=== PATIENT | female | born 1955 | race Caucasian/White ===

== ENCOUNTER 2019-07-10 09:16 | Outpatient (CLI) | payer OTHER | END 2019-07-10 11:16 | disposition home or self-care (01) | LOC: ECT 09:16 | DX: F33.2 Major depressive disorder, recurrent severe without psychotic features (principal); F43.10 Post-traumatic stress disorder, unspecified; F41.1 Generalized anxiety disorder; Z98.1 Arthrodesis status; Z90.710 Acquired absence of both cervix and uterus; Z79.899 Other long term (current) drug therapy; Z81.8 Family history of other mental and behavioral disorders ==

== ENCOUNTER 2019-07-18 05:40 | Outpatient (RCR) | payer OTHER ==
[~2019-07-18] VITALS: Ht 157.5 cm; Wt 46.7 kg
[2019-07-18] MEDS ORDERED: Succinylcholine 20mg/ml 10ml vial ONE (05:41)
[2019-07-18] MEDS ORDERED: Methohexital Sodium Syr 100mg/10ml IVP ONE (05:41)
[2019-07-18] MEDS ORDERED: NS 500ML ONE (05:41)
[2019-07-18 10:09] VITALS: BP 170/81
[2019-07-18 10:25] VITALS: BP 164/117
[2019-07-18 10:30] VITALS: BP 176/83
[2019-07-18 10:35] VITALS: BP 169/83
[2019-07-18 10:40] VITALS: BP 169/76
[2019-07-18 10:42] VITALS: BP 170/81
[2019-07-21] MEDS ORDERED: Methohexital Sodium Syr 100mg/10ml IVP ONE (06:00)
[2019-07-21] MEDS ORDERED: NS 500ML ONE (06:00)
[2019-07-21] MEDS ORDERED: Succinylcholine 20mg/ml 10ml vial ONE (06:00)
[2019-07-21 10:44] VITALS: BP 160/77
[2019-07-21 10:56] VITALS: BP 182/91
[2019-07-21 11:01] VITALS: BP 174/89
[2019-07-21 11:06] VITALS: BP 166/83
[2019-07-21 11:11] VITALS: BP 165/69
== END 2019-07-21 | disposition home or self-care (01) ==
LOC: ECT 05:40
DX: F33.2 Major depressive disorder, recurrent severe without psychotic features (principal)
CPT/HCPCS: 90870; J0330; J7040

== ENCOUNTER 2019-07-23 11:16 | Outpatient (RCR) | payer OTHER ==
[~2019-07-23] VITALS: Ht 157.5 cm; Wt 46.7 kg
[2019-07-23 10:51] VITALS: BP 136/71
[2019-07-23 11:04] VITALS: BP 175/91
[2019-07-23 11:09] VITALS: BP 164/80
[2019-07-23 11:14] VITALS: BP 156/74
[~2019-07-23 11:16] MED LIST: Methohexital Sodium Syr 100mg/10ml IVP ONE; NS 500ML ONE; Succinylcholine 20mg/ml 10ml vial ONE
[2019-07-23] MEDS ORDERED: NS 500ML ONE (11:17)
[2019-07-23] MEDS ORDERED: Succinylcholine 20mg/ml 10ml vial ONE ×2 (11:17)
[2019-07-23] MEDS ORDERED: Methohexital Sodium Syr 100mg/10ml IVP ONE ×2 (11:17)
[2019-07-23 11:19] VITALS: BP 147/65
[2019-07-25 07:58] VITALS: BP 151/70
[2019-07-25 08:10] VITALS: BP 179/75
[2019-07-25 08:15] VITALS: BP 169/77
[2019-07-25 08:20] VITALS: BP 169/69
[2019-07-25 08:25] VITALS: BP 159/68
[2019-07-25] MEDS ORDERED: Methohexital Sodium Syr 100mg/10ml IVP ONE (09:00)
[2019-07-25] MEDS ORDERED: NS 500ML ONE (09:00)
[2019-07-25] MEDS ORDERED: Succinylcholine 20mg/ml 10ml vial ONE (09:00)
[2019-07-28 07:03] VITALS: BP 144/77
[2019-07-28 07:20] VITALS: BP 152/90
[2019-07-28 07:25] VITALS: BP 164/68
[2019-07-28 07:30] VITALS: BP 159/68
[2019-07-28 07:35] VITALS: BP 145/67
[2019-07-28] MEDS ORDERED: Succinylcholine 20mg/ml 10ml vial ONE (09:00)
[2019-07-28] MEDS ORDERED: Methohexital Sodium Syr 100mg/10ml IVP ONE (09:00)
[2019-07-28] MEDS ORDERED: NS 500ML ONE (09:00)
[2019-07-30 09:27] VITALS: BP 143/79
[2019-07-30 09:39] VITALS: BP 189/99
[2019-07-30 09:44] VITALS: BP 165/89
[2019-07-30 09:49] VITALS: BP 148/72
[2019-07-30 09:54] VITALS: BP 147/75
[2019-08-01 08:51] VITALS: BP 140/76
[2019-08-01 09:05] VITALS: BP 155/75
[2019-08-01 09:10] VITALS: BP 149/72
[2019-08-01 09:15] VITALS: BP 139/58
[2019-08-01 09:20] VITALS: BP 145/65
[2019-08-04 08:19] VITALS: BP 138/75
[2019-08-04 08:30] VITALS: BP 153/68
[2019-08-04 08:35] VITALS: BP 138/52
[2019-08-04 08:40] VITALS: BP 144/56
[2019-08-04 08:45] VITALS: BP 144/50
[2019-08-04] MEDS ORDERED: NS 500ML ONE (09:00)
[2019-08-04] MEDS ORDERED: Succinylcholine 20mg/ml 10ml vial ONE (09:00)
[2019-08-04] MEDS ORDERED: Methohexital Sodium Syr 100mg/10ml IVP ONE (09:00)
[2019-08-06 08:47] VITALS: BP 139/73
[2019-08-06] MEDS ORDERED: Methohexital Sodium Syr 100mg/10ml IVP ONE (09:00)
[2019-08-06] MEDS ORDERED: NS 500ML ONE (09:00)
[2019-08-06] MEDS ORDERED: Succinylcholine 20mg/ml 10ml vial ONE (09:00)
[2019-08-06 09:05] VITALS: BP 148/70
[2019-08-06 09:10] VITALS: BP 153/70
[2019-08-06 09:15] VITALS: BP 148/69
[2019-08-06 09:20] VITALS: BP 142/58
[2019-08-13] MEDS ORDERED: Methohexital Sodium Syr 100mg/10ml IVP ONE (06:00)
[2019-08-13] MEDS ORDERED: Succinylcholine 20mg/ml 10ml vial ONE (06:00)
[2019-08-13] MEDS ORDERED: NS 500ML ONE (06:00)
[2019-08-13 08:35] VITALS: BP 148/78
[2019-08-13 08:52] VITALS: BP 164/83
[2019-08-13 08:57] VITALS: BP 155/87
[2019-08-13 09:02] VITALS: BP 161/74
[2019-08-13 09:07] VITALS: BP 150/72
== END 2019-08-21 | disposition home or self-care (01) ==
LOC: ECT 11:16
DX: F33.2 Major depressive disorder, recurrent severe without psychotic features (principal); F41.1 Generalized anxiety disorder; F43.10 Post-traumatic stress disorder, unspecified; Z98.1 Arthrodesis status; Z90.710 Acquired absence of both cervix and uterus
CPT/HCPCS: 90870; J0330; J2405; J7040

== ENCOUNTER 2019-08-27 05:08 | Outpatient (RCR) | payer OTHER ==
[~2019-08-27] VITALS: Ht 157.5 cm; Wt 46.7 kg
[2019-08-27] MEDS ORDERED: NS 500ML ONE (05:09)
[2019-08-27] MEDS ORDERED: Succinylcholine 20mg/ml 10ml vial ONE (05:09)
[2019-08-27] MEDS ORDERED: Methohexital Sodium Syr 100mg/10ml IVP ONE (05:09)
[2019-08-27 08:49] VITALS: BP 147/81
[2019-08-27 09:01] VITALS: BP 158/78
[2019-08-27 09:06] VITALS: BP 155/81
[2019-08-27 09:11] VITALS: BP 157/72
[2019-08-27 09:16] VITALS: BP 158/74
== END 2019-09-20 | disposition home or self-care (01) ==
LOC: ECT 05:08
DX: F33.2 Major depressive disorder, recurrent severe without psychotic features (principal)
CPT/HCPCS: 90870; J0330; J2405; J7040

== ENCOUNTER 2019-09-22 05:49 | Outpatient (RCR) | payer OTHER ==
[~2019-09-22] VITALS: Ht 157.5 cm; Wt 46.7 kg
[2019-09-22] MEDS ORDERED: Succinylcholine 20mg/ml 10ml vial ONE (05:50)
[2019-09-22] MEDS ORDERED: NS 500ML ONE (05:50)
[2019-09-22] MEDS ORDERED: Methohexital Sodium Syr 100mg/10ml IVP ONE (05:50)
[2019-09-22 08:30] VITALS: BP 150/83
[2019-09-22 08:47] VITALS: BP 166/94
[2019-09-22 08:52] VITALS: BP 175/83
[2019-09-22 08:57] VITALS: BP 165/82
[2019-09-22 09:02] VITALS: BP 163/74
== END 2019-10-21 | disposition home or self-care (01) ==
LOC: ECT 05:49
DX: F33.2 Major depressive disorder, recurrent severe without psychotic features (principal)
CPT/HCPCS: 90870; J2405

== ENCOUNTER 2019-10-29 05:50 | Outpatient (RCR) | payer OTHER | END 2019-11-21 | disposition home or self-care (01) | LOC: ECT 05:50 | DX: F33.2 Major depressive disorder, recurrent severe without psychotic features (principal); Z53.9 Procedure and treatment not carried out, unspecified reason ==

== ENCOUNTER 2019-12-22 05:49 | Outpatient (RCR) | payer OTHER ==
[~2019-12-22] VITALS: Ht 157.5 cm; Wt 46.7 kg
[2019-12-22] MEDS ORDERED: NS 500ML ONE ×3 (05:50)
[2019-12-22] MEDS ORDERED: Methohexital Sodium Syr 100mg/10ml IVP ONE ×3 (05:50)
[2019-12-22] MEDS ORDERED: Dexamethasone 4mg/ml vial ONE (05:50)
[2019-12-22] MEDS ORDERED: Succinylcholine 20mg/ml 10ml vial ONE ×3 (05:50)
[2019-12-22 08:12] VITALS: BP 157/83
[2019-12-22 08:26] VITALS: BP 176/91
[2019-12-22 08:31] VITALS: BP 175/83
[2019-12-22 08:36] VITALS: BP 165/84
[2019-12-22 08:41] VITALS: BP 165/76
[2019-12-24] MEDS ORDERED: Methohexital Sodium Syr 100mg/10ml IVP ONE (06:00)
[2019-12-24] MEDS ORDERED: NS 500ML ONE (06:00)
[2019-12-24] MEDS ORDERED: Succinylcholine 20mg/ml 10ml vial ONE (06:00)
[2019-12-24 08:36] VITALS: BP 143/83
[2019-12-24 08:52] VITALS: BP 187/85
[2019-12-24 08:57] VITALS: BP 162/72
[2019-12-24 09:02] VITALS: BP 163/74
[2019-12-24 09:07] VITALS: BP 163/73
[2019-12-26 08:42] VITALS: BP 156/77
[2019-12-26 08:55] VITALS: BP 186/95
[2019-12-26 09:00] VITALS: BP 172/82
[2019-12-26 09:05] VITALS: BP 162/75
[2019-12-26 09:10] VITALS: BP 161/78
[2019-12-29] MEDS ORDERED: Methohexital Sodium Syr 100mg/10ml IVP ONE (07:00)
[2019-12-29] MEDS ORDERED: NS 500ML ONE (07:00)
[2019-12-29] MEDS ORDERED: Succinylcholine 20mg/ml 10ml vial ONE (07:00)
[2019-12-29 09:07] VITALS: BP 135/89
[2019-12-29 09:20] VITALS: BP 167/93
[2019-12-29 09:25] VITALS: BP 171/74
[2019-12-29 09:30] VITALS: BP 157/69
[2019-12-29 09:35] VITALS: BP 151/64
[2019-12-31] MEDS ORDERED: Methohexital Sodium Syr 100mg/10ml IVP ONE (07:00)
[2019-12-31] MEDS ORDERED: Succinylcholine 20mg/ml 10ml vial ONE (07:00)
[2019-12-31] MEDS ORDERED: NS 500ML ONE (07:00)
[2019-12-31 08:32] VITALS: BP 136/80
[2019-12-31 08:45] VITALS: BP 175/72
[2019-12-31 08:50] VITALS: BP 167/75
[2019-12-31 08:55] VITALS: BP 157/70
[2019-12-31 09:00] VITALS: BP 153/73
[2020-01-02] MEDS ORDERED: Succinylcholine 20mg/ml 10ml vial ONE (09:00)
[2020-01-02] MEDS ORDERED: Dexamethasone 4mg/ml vial ONE (09:00)
[2020-01-02] MEDS ORDERED: Methohexital Sodium Syr 100mg/10ml IVP ONE (09:00)
[2020-01-02] MEDS ORDERED: NS 500ML ONE (09:00)
[2020-01-02 09:14] VITALS: BP 137/79
[2020-01-02 09:25] VITALS: BP 186/93
[2020-01-02 09:30] VITALS: BP 158/93
[2020-01-02 09:35] VITALS: BP 153/93
[2020-01-02 09:40] VITALS: BP 149/70
[2020-01-05] MEDS ORDERED: Dexamethasone 4mg/ml vial ONE (09:00)
[2020-01-05] MEDS ORDERED: Succinylcholine 20mg/ml 10ml vial ONE (09:00)
[2020-01-05] MEDS ORDERED: NS 500ML ONE (09:00)
[2020-01-05] MEDS ORDERED: Methohexital Sodium Syr 100mg/10ml IVP ONE (09:00)
[2020-01-05 09:05] VITALS: BP 146/73
[2020-01-05 09:20] VITALS: BP 173/73
[2020-01-05 09:25] VITALS: BP 163/82
[2020-01-05 09:30] VITALS: BP 159/71
[2020-01-05 09:35] VITALS: BP 156/70
[2020-01-07] MEDS ORDERED: Methohexital Sodium Syr 100mg/10ml IVP ONE (06:00)
[2020-01-07] MEDS ORDERED: Dexamethasone 4mg/ml vial ONE (06:00)
[2020-01-07] MEDS ORDERED: NS 500ML ONE (06:00)
[2020-01-07] MEDS ORDERED: Succinylcholine 20mg/ml 10ml vial ONE (06:00)
[2020-01-07 08:45] VITALS: BP 138/60
[2020-01-07 09:00] VITALS: BP 162/76
[2020-01-07 09:05] VITALS: BP 167/76
[2020-01-07 09:10] VITALS: BP 157/72
[2020-01-07 09:15] VITALS: BP 138/70
[2020-01-09] MEDS ORDERED: Ketorolac 30mg Inj IM ONE (08:27)
[2020-01-09 09:10] VITALS: BP 137/75
[2020-01-09 09:25] VITALS: BP 156/74
[2020-01-09 09:30] VITALS: BP 150/76
[2020-01-09 09:35] VITALS: BP 151/77
[2020-01-09 09:40] VITALS: BP 145/67
[2020-01-12 08:28] VITALS: BP 142/78
[2020-01-12 08:40] VITALS: BP 146/69
[2020-01-12 08:45] VITALS: BP 150/66
[2020-01-12 08:50] VITALS: BP 134/67
[2020-01-12 08:55] VITALS: BP 144/74
[2020-01-12] MEDS ORDERED: Succinylcholine 20mg/ml 10ml vial ONE (09:00)
[2020-01-12] MEDS ORDERED: Methohexital Sodium Syr 100mg/10ml IVP ONE (09:00)
[2020-01-12] MEDS ORDERED: Dexamethasone 4mg/ml vial ONE (09:00)
[2020-01-12] MEDS ORDERED: NS 500ML ONE (09:00)
[2020-01-16] MEDS ORDERED: Dexamethasone 4mg/ml vial ONE (06:00)
[2020-01-16] MEDS ORDERED: NS 500ML ONE (06:00)
[2020-01-16] MEDS ORDERED: Succinylcholine 20mg/ml 10ml vial ONE (06:00)
[2020-01-16] MEDS ORDERED: Methohexital Sodium Syr 100mg/10ml IVP ONE (06:00)
[2020-01-16 10:01] VITALS: BP 152/87
[2020-01-16 10:15] VITALS: BP 144/63
[2020-01-16 10:20] VITALS: BP 134/71
[2020-01-16 10:25] VITALS: BP 147/73
[2020-01-16 10:30] VITALS: BP 134/66
== END 2020-01-20 | disposition home or self-care (01) ==
LOC: ECT 05:49
DX: F33.2 Major depressive disorder, recurrent severe without psychotic features (principal); F44.4 Conversion disorder with motor symptom or deficit; F43.10 Post-traumatic stress disorder, unspecified; Z98.1 Arthrodesis status; Z90.710 Acquired absence of both cervix and uterus
CPT/HCPCS: 90870; J0330; J1100; J2405; J7040

== ENCOUNTER 2020-01-23 06:05 | Outpatient (RCR) | payer OTHER ==
[~2020-01-23] VITALS: Ht 157.5 cm; Wt 46.7 kg
[~2020-01-23 06:05] MED LIST changes: +Dexamethasone 4mg/ml vial ONE
[2020-01-23 10:17] VITALS: BP 145/82
[2020-01-23 10:30] VITALS: BP 153/63
[2020-01-23 10:35] VITALS: BP 135/63
[2020-01-23 10:40] VITALS: BP 137/70
[2020-01-23 10:45] VITALS: BP 144/66
[2020-02-04] MEDS ORDERED: Dexamethasone 4mg/ml vial ONE (09:00)
[2020-02-04] MEDS ORDERED: NS 500ML ONE (09:00)
[2020-02-04] MEDS ORDERED: Succinylcholine 20mg/ml 10ml vial ONE (09:00)
[2020-02-04] MEDS ORDERED: Methohexital Sodium Syr 100mg/10ml IVP ONE (09:00)
[2020-02-04 09:53] VITALS: BP 152/83
[2020-02-04 10:08] VITALS: BP 151/71
[2020-02-04 10:13] VITALS: BP 147/66
[2020-02-04 10:18] VITALS: BP 141/63
[2020-02-04 10:23] VITALS: BP 146/67
[2020-02-18] MEDS ORDERED: Methohexital Sodium Syr 100mg/10ml IVP ONE (09:00)
[2020-02-18] MEDS ORDERED: Succinylcholine 20mg/ml 10ml vial ONE (09:00)
[2020-02-18] MEDS ORDERED: NS 500ML ONE (09:00)
[2020-02-18] MEDS ORDERED: Dexamethasone 4mg/ml vial ONE (09:00)
[2020-02-18 09:21] VITALS: BP 158/80
[2020-02-18] MEDS ORDERED: Lidocaine 2% 100mg/5ml Carp IV PRN (09:39)
[2020-02-18] MEDS ORDERED: Atropine Sulfate 0.4mg/ml inj IVP PRN (09:39)
[2020-02-18 09:40] VITALS: BP 156/72
[2020-02-18 09:45] VITALS: BP 150/63
[2020-02-18 09:50] VITALS: BP 139/69
[2020-02-18 09:55] VITALS: BP 146/63
== END 2020-02-19 | disposition home or self-care (01) ==
LOC: ECT 06:05
DX: F33.2 Major depressive disorder, recurrent severe without psychotic features (principal)
CPT/HCPCS: 90870; J0330; J1100; J2405; J7040